=== PATIENT | female | born 1950 | race Two or more races ===

== ENCOUNTER 2019-07-14 19:58 | Emergency (ER) | payer MEDICARE, BC ==
[~2019-07-14] VITALS: Ht 147.3 cm; Wt 93.2 kg
[2019-07-14] MEDS ORDERED: ketorolac trometh inj. 60 MG/2 ML VIAL IM ONE (21:40)
[2019-07-14] MEDS ORDERED: morphine ER 30mg tablet PO ONE (21:40)
[2019-07-14 21:42] VITALS: BP 160/93
== END 2019-07-14 22:01 | disposition home or self-care (01) ==
LOC: ER 20:00
DX: G89.29 Other chronic pain (principal); K21.9 Gastro-esophageal reflux disease without esophagitis; M79.7 Fibromyalgia
CPT/HCPCS: 96372; 99283; J1885